=== PATIENT | female | born 1945 | race Caucasian/White ===

== ENCOUNTER 2017-08-16 09:16 | Emergency (ER) | payer OTHER, MEDICARE ==
[~2017-08-16] VITALS: Ht 167.6 cm; Wt 55.7 kg
[~2017-08-16 09:16] MED LIST: ALPR0.254 PO; AMLO5TAB2 PO; ASPI-496 PO; CETI-18 PO; CHOL10003 PO; CITA20TA5 PO; CYCL1DRO EACHEYE; DOXY100C2 PO; FLUO20CA19 PO; FLUT12HF3 IH; HYDR-3237 PO; HYDR25TA6 PO; IPRA4AER INH; PRED10TA PO; TEMA15CA6 PO; TIOT18CA INH; TRAZ50TA18 PO
[2017-08-16] MEDS ORDERED: MIRT15TA4 PO (09:44)
[2017-08-16] MEDS ORDERED: OMEP-110 PO (09:44)
[2017-08-16] MEDS ORDERED: METO50TA82 PO (09:44)
[2017-08-16] MEDS ORDERED: CETI10CA PO (09:44)
[2017-08-16] MEDS ORDERED: VALS160T3 PO (09:44)
[2017-08-16] MEDS ORDERED: LETR2.5T PO (09:44)
[2017-08-16] MEDS ORDERED: ASPI-496 PO (09:44)
[2017-08-16] MEDS ORDERED: MELO15TA24 PO (09:44)
[2017-08-16] MEDS ORDERED: TEMA30CA PO (09:44)
[2017-08-16] MEDS ORDERED: FLUO20TA25 PO (09:44)
[2017-08-16] MEDS ORDERED: OXYcodone/APAP 5/325MG TABLET ONE (09:51)
[2017-08-16] MEDS ORDERED: OXYcodone/APAP 5/325MG TABLET PO ONE (10:00)
[2017-08-16 10:43] VITALS: BP 132/70
== END 2017-08-16 10:56 | disposition home or self-care (01) ==
LOC: ED 10:08
DX: M54.41 Lumbago with sciatica, right side (principal); I10 Essential (primary) hypertension; F10.129 Alcohol abuse with intoxication, unspecified; J44.9 Chronic obstructive pulmonary disease, unspecified
CPT/HCPCS: 99283; J7512

== ENCOUNTER → 2017-08-31 | Outpatient (CLI) | payer OTHER ==
[~2017-08-31] MED LIST changes: +CETI10CA PO; +FLUO20TA25 PO; +LETR2.5T PO; +MELO15TA24 PO; +METO50TA82 PO; +MIRT15TA4 PO; +OMEP-110 PO; +TEMA30CA PO; +VALS160T3 PO
== END | disposition home or self-care (01) ==
LOC: RAD 12:11
PROVIDERS: ATTEND Neurological Surgery
DX: M50.33 Other cervical disc degeneration, cervicothoracic region (principal); M48.02 Spinal stenosis, cervical region; M48.54XA Collapsed vertebra, not elsewhere classified, thoracic region, initial encounter for fracture; M47.896 Other spondylosis, lumbar region; J98.4 Other disorders of lung; Z98.890 Other specified postprocedural states
CPT/HCPCS: 72141; 74176

== ENCOUNTER 2018-01-28 06:17 | Inpatient (IN) | payer OTHER, MEDICARE ==
[~2018-01-28] VITALS: Ht 167.6 cm; Wt 55.0 kg
[2018-01-28] MEDS ORDERED: SODIUM CHLORIDE 0.9% 1,000ML IVBOLUS ONE (07:00)
[2018-01-28] MEDS ORDERED: ALBUTEROL/IPRATROPIUM 2.5MG/0.5MG, 3 ML NPPB ONE (07:00)
[2018-01-28] MEDS ORDERED: ALBUTEROL/IPRATROPIUM 2.5MG/0.5MG, 3 ML ONE (07:00)
[2018-01-28] MEDS ORDERED: methylPREDNISolone SOD SUCC 125 MG/2 ML IVP ONE (07:00)
[2018-01-28] MEDS ORDERED: SODIUM CHLORIDE FLUSH 10ML SYR IVF ONE (07:00)
[2018-01-28] MEDS ORDERED: LORazepam 2 MG/ML, 1ML ONE ×2 (07:14→07:23)
[2018-01-28 07:22] LABS: RAPID INFLUENZA A Negative (Negative); RAPID INFLUENZA B Negative (Negative)
[2018-01-28] MEDS ORDERED: methylPREDNISolone SOD SUCC 125 MG/2 ML ONE (07:23)
[2018-01-28 07:30] LABS: BASOPHILS # (AUTO) 0.01 x10^3/uL (0-0.1); BASOPHILS % (AUTO) 0 % (0-1); EOSINOPHILS # (AUTO) 0.27 x10^3/uL (0-0.4); EOSINOPHILS % (AUTO) 2 % (1-7); LYMPHOCYTES # (AUTO) 0.81 x10^3/uL (1-3.4); LYMPHOCYTES % (AUTO) 6 % (22-44); MD NO; MEAN CORPUSCULAR HEMOGLOBIN 29.3 pg (27.0-34.8); MEAN CORPUSCULAR HGB CONC 33.3 g/dL (32.4-35.8); MONOCYTES # (AUTO) 0.75 x10^3/uL (0.2-0.8); MONOCYTES % (AUTO) 6 % (2-9); NEUTROPHILS # (AUTO) 11.58 x10^3/uL (1.8-6.8); NEUTROPHILS % (AUTO) 86 % (42-75); PLATELET COUNT 553 x10^3/uL (130-400); RED BLOOD COUNT 3.46 x10^6/uL (3.82-5.3); RED CELL DISTRIBUTION WIDTH 14.8 % (9.6-15.2)
[2018-01-28] MEDS ORDERED: LORazepam 2 MG/ML, 1ML IVPush ONE (07:30)
[2018-01-28 07:43] LABS: ALANINE AMINOTRANSFERASE 10 U/L (12-78); ALBUMIN 3.4 g/dL (3.4-5.0); ANION GAP 10 mmol/L (5-15); CALCIUM 8.6 mg/dL (8.5-10.1); CHLORIDE 86 mmol/L (98-107)
[2018-01-28 07:48] LABS: ALKALINE PHOSPHATASE 157 U/L (45-117); BILIRUBIN,TOTAL 0.3 mg/dL (0.2-1.0); CREATININE 0.75 mg/dL (0.55-1.02); INTERNATIONAL NORMALIZED RATIO 1.01 (0.93-1.1); PROTHROMBIN TIME 10.5 Seconds (9.6-11.5); TOTAL PROTEIN 7.9 g/dL (6.4-8.2); TROPONIN I < 0.015 ng/mL (0.000-0.045)
[2018-01-28] MEDS ORDERED: CEFTRIAXONE PMX 1GM/50ML 50 ML ONE (08:22)
[2018-01-28] MEDS ORDERED: AZITHROMYCIN 500 MG in SODIUM CHLORIDE 0.9% 250 ML IV ONE (08:30)
[2018-01-28] MEDS ORDERED: CEFTRIAXONE PMX 1GM/50ML 50 ML IV ONE (08:30)
[2018-01-28] MEDS ORDERED: LETR2.5T PO (08:35)
[2018-01-28] MEDS ORDERED: METO1TAB6 PO (08:35)
[2018-01-28] MEDS ORDERED: FLUT12HF3 IH (08:36)
[2018-01-28] MEDS ORDERED: TIOT18CA INH (08:37)
[2018-01-28] MEDS ORDERED: MIRT15TA4 PO (08:38)
[2018-01-28] MEDS ORDERED: CLON-365 PO (08:39)
[2018-01-28] MEDS ORDERED: OXYB5TAB7 PO (08:40)
[2018-01-28] MEDS ORDERED: OXYC-302 PO (09:41)
[2018-01-28 09:48] VITALS: BP 118/74
[2018-01-28] MEDS: ALBUTEROL/IPRATROPIUM 2.5MG/0.5MG, 3 ML NPPB SCH ×4 (10:00→22:50)
[2018-01-28] MEDS: GUAIFENESIN ER 600 MG TABLET PO SCH ×2 (11:55→21:06)
[2018-01-28] MEDS: HYDROCHLOROTHIAZIDE 25 MG TABLET PO SCH (11:58)
[2018-01-28] MEDS: METOPROLOL TARTRATE 50 MG TABLET PO SCH (11:58)
[2018-01-28] MEDS ORDERED: LORazepam 1MG TABLET PO PRN (12:00)
[2018-01-28] MEDS ORDERED: HYDROcodone/APAP 5/325 TABLET PO PRN (12:00)
[2018-01-28] MEDS: FLUOXETINE HCL 20 MG CAPSULE PO SCH (12:00)
[2018-01-28] MEDS: VALSARTAN 160 MG TABLET PO SCH (12:00)
[2018-01-28] MEDS ORDERED: HYDROCHLOROTHIAZIDE PO SCH (12:00)
[2018-01-28] MEDS ORDERED: POLYETHYLENE GLYCOL 17 GM PACKET PO PRN (12:00)
[2018-01-28] MEDS ORDERED: BISACODYL 10 MG SUPP PR PRN (12:00)
[2018-01-28] MEDS ORDERED: METOPROLOL PO SCH (12:00)
[2018-01-28] MEDS ORDERED: ACETAMINOPHEN 325 MG TABLET PO PRN (12:00)
[2018-01-28] MEDS ORDERED: [UNRECOGNIZED DRUG - OTHER] PO SCH (12:00)
[2018-01-28] MEDS ORDERED: LABETALOL 5MG/ML, 20ML IVPush PRN ×2 (12:00→22:00)
[2018-01-28 12:52] VITALS: BP 125/72
[2018-01-28] MEDS: ENOXAPARIN 40 MG/0.4 ML SQ SCH (13:08)
[2018-01-28] MEDS: OXYcodone/APAP 5/325MG TABLET PO SCH ×3 (13:08→21:06)
[2018-01-28] MEDS: OXYBUTYNIN CHLORIDE 5 MG TABLET PO SCH ×2 (14:27→21:06)
[2018-01-28 19:36] VITALS: BP 108/59
[2018-01-28] MEDS: DOCUSATE 100 MG CAPSULE PO PRN (21:06)
[2018-01-28] MEDS: MIRTAZAPINE 15 MG TABLET PO SCH (21:06)
[2018-01-28] MEDS: LORazepam 1MG TABLET PO PRN (21:07)
[2018-01-29 02:32] VITALS: BP 132/74
[2018-01-29] MEDS: ALBUTEROL/IPRATROPIUM 2.5MG/0.5MG, 3 ML NPPB SCH ×6 (04:45→22:00)
[2018-01-29 04:59] LABS: BASOPHILS # (AUTO) 0.01 x10^3/uL (0-0.1); BASOPHILS % (AUTO) 0 % (0-1); EOSINOPHILS % (AUTO) 0 % (1-7); LYMPHOCYTES # (AUTO) 0.81 x10^3/uL (1-3.4); LYMPHOCYTES % (AUTO) 7 % (22-44); MD NO; MEAN CORPUSCULAR HEMOGLOBIN 29.2 pg (27.0-34.8); MEAN CORPUSCULAR HGB CONC 33.1 g/dL (32.4-35.8); MEAN CORPUSCULAR VOLUME 88.4 fL (80-100); MEAN PLATELET VOLUME 6.9 fL (7.4-10.4); MONOCYTES # (AUTO) 0.59 x10^3/uL (0.2-0.8); MONOCYTES % (AUTO) 5 % (2-9); NEUTROPHILS # (AUTO) 10.62 x10^3/uL (1.8-6.8); NEUTROPHILS % (AUTO) 88 % (42-75); PLATELET COUNT 449 x10^3/uL (130-400); RED BLOOD COUNT 2.88 x10^6/uL (3.82-5.3); RED CELL DISTRIBUTION WIDTH 15.1 % (9.6-15.2)
[2018-01-29 05:04] LABS: ANION GAP 6 mmol/L (5-15); CALCIUM 8.5 mg/dL (8.5-10.1); CHLORIDE 91 mmol/L (98-107); CREATININE 0.75 mg/dL (0.55-1.02)
[2018-01-29] MEDS: OXYcodone/APAP 5/325MG TABLET PO SCH ×4 (06:29→20:09)
[2018-01-29 07:22] VITALS: BP 125/69
[2018-01-29] MEDS: MELOXICAM 15 MG TABLET PO SCH (08:27)
[2018-01-29] MEDS: OXYBUTYNIN CHLORIDE 5 MG TABLET PO SCH ×2 (08:27→20:09)
[2018-01-29] MEDS: OMEPRAZOLE 20 MG CAPSULE.DR PO SCH (08:27)
[2018-01-29] MEDS: GUAIFENESIN ER 600 MG TABLET PO SCH ×2 (08:27→20:09)
[2018-01-29] MEDS: FLUOXETINE HCL 20 MG CAPSULE PO SCH (08:28)
[2018-01-29] MEDS: AZITHROMYCIN 250 MG TABLET PO SCH (08:28)
[2018-01-29] MEDS: VALSARTAN 160 MG TABLET PO SCH (08:28)
[2018-01-29] MEDS: ASPIRIN 81 MG TABLET EC PO SCH (08:28)
[2018-01-29] MEDS: HYDROCHLOROTHIAZIDE 25 MG TABLET PO SCH (08:28)
[2018-01-29] MEDS: METOPROLOL TARTRATE 50 MG TABLET PO SCH (08:28)
[2018-01-29] MEDS: FLUTICASONE/VILANTEROL 100-25MCG/INH INH SCH (08:29)
[2018-01-29] MEDS: prednisOLONE 15 MG/5 ML ORAL SOLN PO SCH (08:29)
[2018-01-29] MEDS: CEFTRIAXONE PMX 1GM/50ML 50 ML IV SCH (08:29)
[2018-01-29] MEDS ORDERED: OXYBUTYNIN CHLORIDE 5 MG TABLET PO SCH (09:00)
[2018-01-29] MEDS: SODIUM CHLORIDE 1 GM TABLET PO SCH ×4 (09:52→20:10)
[2018-01-29 12:12] VITALS: BP 144/90
[2018-01-29] MEDS: ENOXAPARIN 40 MG/0.4 ML SQ SCH (12:34)
[2018-01-29] MEDS: LORazepam 1MG TABLET PO PRN ×2 (12:44→20:09)
[2018-01-29 18:33] VITALS: BP 116/68
[2018-01-29] MEDS: MIRTAZAPINE 15 MG TABLET PO SCH (20:09)
[2018-01-29] MEDS: DOCUSATE 100 MG CAPSULE PO PRN (20:09)
[2018-01-29 20:21] LABS: ANION GAP 6 mmol/L (5-15); CALCIUM 8.2 mg/dL (8.5-10.1); CHLORIDE 92 mmol/L (98-107); CREATININE 1.27 mg/dL (0.55-1.02)
[2018-01-30 01:12] VITALS: BP 119/65
[2018-01-30 05:33] LABS: BASOPHILS # (AUTO) 0.03 x10^3/uL (0-0.1); BASOPHILS % (AUTO) 0 % (0-1); EOSINOPHILS # (AUTO) 0.01 x10^3/uL (0-0.4); EOSINOPHILS % (AUTO) 0 % (1-7); LYMPHOCYTES # (AUTO) 1.11 x10^3/uL (1-3.4); LYMPHOCYTES % (AUTO) 9 % (22-44); MD NO; MEAN CORPUSCULAR HEMOGLOBIN 29.6 pg (27.0-34.8); MEAN CORPUSCULAR HGB CONC 33.4 g/dL (32.4-35.8); MEAN CORPUSCULAR VOLUME 88.7 fL (80-100); MEAN PLATELET VOLUME 7.2 fL (7.4-10.4); MONOCYTES # (AUTO) 0.74 x10^3/uL (0.2-0.8); MONOCYTES % (AUTO) 6 % (2-9); NEUTROPHILS # (AUTO) 9.84 x10^3/uL (1.8-6.8); NEUTROPHILS % (AUTO) 84 % (42-75); PLATELET COUNT 469 x10^3/uL (130-400); RED BLOOD COUNT 2.89 x10^6/uL (3.82-5.3); RED CELL DISTRIBUTION WIDTH 14.6 % (9.6-15.2)
[2018-01-30] MEDS: OXYcodone/APAP 5/325MG TABLET PO SCH ×4 (05:36→20:07)
[2018-01-30] MEDS: SODIUM CHLORIDE 1 GM TABLET PO SCH ×4 (05:36→20:07)
[2018-01-30 05:53] LABS: ANION GAP 6 mmol/L (5-15); CALCIUM 8.5 mg/dL (8.5-10.1); CHLORIDE 94 mmol/L (98-107)
[2018-01-30 05:54] LABS: CREATININE 0.92 mg/dL (0.55-1.02)
[2018-01-30] MEDS: ALBUTEROL/IPRATROPIUM 2.5MG/0.5MG, 3 ML NPPB SCH ×4 (06:00→20:45)
[2018-01-30 06:42] VITALS: BP 137/81
[2018-01-30] MEDS: CEFTRIAXONE PMX 1GM/50ML 50 ML IV SCH (08:27)
[2018-01-30] MEDS: FLUTICASONE/VILANTEROL 100-25MCG/INH INH SCH (08:28)
[2018-01-30] MEDS: AZITHROMYCIN 250 MG TABLET PO SCH (08:28)
[2018-01-30] MEDS: GUAIFENESIN ER 600 MG TABLET PO SCH (08:28)
[2018-01-30] MEDS: prednisOLONE 15 MG/5 ML ORAL SOLN PO SCH (08:28)
[2018-01-30] MEDS: ASPIRIN 81 MG TABLET EC PO SCH (08:28)
[2018-01-30] MEDS: OXYBUTYNIN CHLORIDE 5 MG TABLET PO SCH ×2 (08:29→20:07)
[2018-01-30] MEDS: FLUOXETINE HCL 20 MG CAPSULE PO SCH (08:29)
[2018-01-30] MEDS: VALSARTAN 160 MG TABLET PO SCH (08:29)
[2018-01-30] MEDS: OMEPRAZOLE 20 MG CAPSULE.DR PO SCH (08:29)
[2018-01-30] MEDS: METOPROLOL TARTRATE 50 MG TABLET PO SCH (08:29)
[2018-01-30] MEDS: MELOXICAM 15 MG TABLET PO SCH (08:29)
[2018-01-30] MEDS: HYDROCHLOROTHIAZIDE 25 MG TABLET PO SCH (08:40)
[2018-01-30] MEDS ORDERED: ALBUTEROL SULFATE 2.5 MG/3 ML NPPB PRN (09:30)
[2018-01-30] MEDS: ENOXAPARIN 40 MG/0.4 ML SQ SCH (11:46)
[2018-01-30 13:30] VITALS: BP 126/74
[2018-01-30] MEDS ORDERED: GUAIFENESIN/DM 200-20MG, 10ML UDC PO PRN (17:00)
[2018-01-30 19:13] VITALS: BP 134/68
[2018-01-30 19:21] LABS: ANION GAP 10 mmol/L (5-15); CALCIUM 8.4 mg/dL (8.5-10.1); CHLORIDE 96 mmol/L (98-107); CREATININE 1.04 mg/dL (0.55-1.02)
[2018-01-30] MEDS: LORazepam 1MG TABLET PO PRN (20:07)
[2018-01-30] MEDS: MIRTAZAPINE 15 MG TABLET PO SCH (20:07)
[2018-01-31 02:15] VITALS: BP 128/70
[2018-01-31 04:44] VITALS: BP 128/62
[2018-01-31] MEDS: SODIUM CHLORIDE 1 GM TABLET PO SCH ×2 (05:46→11:47)
[2018-01-31] MEDS: OXYcodone/APAP 5/325MG TABLET PO SCH ×2 (05:46→11:47)
[2018-01-31 07:42] VITALS: BP 154/84
[2018-01-31] MEDS: ALBUTEROL/IPRATROPIUM 2.5MG/0.5MG, 3 ML NPPB SCH ×2 (08:40→10:40)
[2018-01-31] MEDS: HYDROCHLOROTHIAZIDE 25 MG TABLET PO SCH (09:00)
[2018-01-31] MEDS: ASPIRIN 81 MG TABLET EC PO SCH (09:06)
[2018-01-31] MEDS: VALSARTAN 160 MG TABLET PO SCH (09:06)
[2018-01-31] MEDS: OXYBUTYNIN CHLORIDE 5 MG TABLET PO SCH (09:06)
[2018-01-31] MEDS: METOPROLOL TARTRATE 50 MG TABLET PO SCH (09:06)
[2018-01-31] MEDS: FLUOXETINE HCL 20 MG CAPSULE PO SCH (09:07)
[2018-01-31] MEDS: OMEPRAZOLE 20 MG CAPSULE.DR PO SCH (09:07)
[2018-01-31] MEDS: AZITHROMYCIN 250 MG TABLET PO SCH (09:07)
[2018-01-31] MEDS: MELOXICAM 15 MG TABLET PO SCH (09:07)
[2018-01-31] MEDS: FLUTICASONE/VILANTEROL 100-25MCG/INH INH SCH (09:08)
[2018-01-31] MEDS: CEFTRIAXONE PMX 1GM/50ML 50 ML IV SCH (09:08)
[2018-01-31] MEDS: prednisOLONE 15 MG/5 ML ORAL SOLN PO SCH (09:09)
[2018-01-31] MEDS: ENOXAPARIN 40 MG/0.4 ML SQ SCH (11:49)
[2018-01-31 12:40] VITALS: BP 155/75
[2018-01-31] MEDS ORDERED: FLUT1AER INH (14:11)
[2018-01-31] MEDS ORDERED: GUAI5SYR PO (14:11)
[2018-01-31] MEDS ORDERED: ALBU18HF PO (14:11)
[2018-01-31] MEDS ORDERED: PRED10TA PO (14:11)
[2018-01-31] MEDS ORDERED: GUAI100L11 PO (14:11)
[2018-01-31] MEDS ORDERED: AMOX500T PO (14:11)
== END 2018-01-31 16:06 | disposition home or self-care (01) | DRG 871 ==
LOC: ED 08:06 → EDIP 08:09 → 4WST 09:38 → DCLOUNGE 01-31 15:40
PROVIDERS: ADMIT Internal Medicine; ATTEND Internal Medicine
DX: A41.9 Sepsis, unspecified organism (principal); J18.1 Lobar pneumonia, unspecified organism; J96.01 Acute respiratory failure with hypoxia; J44.1 Chronic obstructive pulmonary disease with (acute) exacerbation; E87.1 Hypo-osmolality and hyponatremia; F19.20 Other psychoactive substance dependence, uncomplicated; J44.0 Chronic obstructive pulmonary disease with (acute) lower respiratory infection; G47.00 Insomnia, unspecified; K40.90 Unilateral inguinal hernia, without obstruction or gangrene, not specified as recurrent; F17.200 Nicotine dependence, unspecified, uncomplicated; F41.9 Anxiety disorder, unspecified; G89.29 Other chronic pain; I10 Essential (primary) hypertension; K21.9 Gastro-esophageal reflux disease without esophagitis; Z85.3 Personal history of malignant neoplasm of breast; Z90.710 Acquired absence of both cervix and uterus; Z99.81 Dependence on supplemental oxygen
CPT/HCPCS: 36415; 71045; 80048; 80053; 83605; 83880; 84145; 84484; 85025; 85610; 85730; 87040; 87400; 93005; 94640; 96361; 96365; 96368; 96375; J0456; J0696; J1650; J7620; J2930; J7030; J7050; J7510

== ENCOUNTER 2018-09-14 02:27 | Inpatient (IN) | payer OTHER, MEDICARE ==
[~2018-09-14] VITALS: Ht 167.6 cm; Wt 67.7 kg
[~2018-09-14 02:27] MED LIST changes: +ALBU18HF PO; -AMLO5TAB2 PO; +AMLO5TAB7 PO; +AMOX500T PO; -CITA20TA5 PO; +CITA20TA6 PO; +CLON1TAB11 PO; +FLUT1AER INH; +GUAI100L11 PO; +GUAI5SYR PO; +METO1TAB6 PO; +OXYB5TAB7 PO; +OXYC-302 PO; +TRAZ-136 PO; -TRAZ50TA18 PO
[2018-09-14] MEDS ORDERED: SODIUM CHLORIDE FLUSH 10ML SYR IVF ONE (03:00)
[2018-09-14] MEDS ORDERED: IPRATROPIUM 0.5 MG/2.5 ML INHA NPPB SCH (03:00)
[2018-09-14 04:26] LABS: BASOPHILS # (AUTO) 0.04 x10^3/uL (0-0.1); BASOPHILS % (AUTO) 0 % (0-1); EOSINOPHILS # (AUTO) 0.57 x10^3/uL (0-0.4); EOSINOPHILS % (AUTO) 6 % (1-7); LYMPHOCYTES # (AUTO) 1.85 x10^3/uL (1-3.4); LYMPHOCYTES % (AUTO) 18 % (22-44); MD NO; MEAN CORPUSCULAR HEMOGLOBIN 31.8 pg (27.0-34.8); MEAN CORPUSCULAR HGB CONC 33.4 g/dL (32.4-35.8); MEAN CORPUSCULAR VOLUME 95.3 fL (80-100); MEAN PLATELET VOLUME 7.5 fL (7.4-10.4); MONOCYTES # (AUTO) 0.95 x10^3/uL (0.2-0.8); MONOCYTES % (AUTO) 9 % (2-9); NEUTROPHILS # (AUTO) 6.71 x10^3/uL (1.8-6.8); NEUTROPHILS % (AUTO) 66 % (42-75); PLATELET COUNT 331 x10^3/uL (130-400); RED BLOOD COUNT 3.23 x10^6/uL (3.82-5.3); RED CELL DISTRIBUTION WIDTH 15.4 % (9.6-15.2)
[2018-09-14 04:39] LABS: ALANINE AMINOTRANSFERASE 23 U/L (12-78); ALBUMIN 3.7 g/dL (3.4-5.0); ANION GAP 8 mmol/L (5-15); CALCIUM 9.3 mg/dL (8.5-10.1); CHLORIDE 101 mmol/L (98-107); CREATININE 1.13 mg/dL (0.55-1.02)
[2018-09-14 04:43] LABS: ALKALINE PHOSPHATASE 132 U/L (45-117); BILIRUBIN,TOTAL 0.3 mg/dL (0.2-1.0); TROPONIN I < 0.015 ng/mL (0.000-0.045)
[2018-09-14] MEDS ORDERED: ALBUTEROL/IPRATROPIUM 2.5MG/0.5MG, 3 ML ONE (05:24)
[2018-09-14] MEDS ORDERED: IPRATROPIUM 0.5 MG/2.5 ML INHA ONE (05:27)
[2018-09-14] MEDS: GUAIFENESIN 100 MG/5 ML, 5ML UDC PO SCH ×4 (06:00→21:00)
[2018-09-14] MEDS: ALBUTEROL SULFATE 2.5 MG/3 ML HHN SCH ×2 (06:00→11:00)
[2018-09-14 06:20] VITALS: BP 139/81
[2018-09-14] MEDS ORDERED: GUAIFENESIN 100 MG/5 ML, 10ML UDC ONE ×3 (06:26→21:08)
[2018-09-14] MEDS ORDERED: DOCUSATE 100 MG CAPSULE PO PRN (06:30)
[2018-09-14] MEDS: IPRATROPIUM 0.5 MG/2.5 ML INHA NPPB SCH ×4 (06:30→20:07)
[2018-09-14] MEDS ORDERED: ONDANSETRON 2MG/ML, 2ML IVPush PRN (06:30)
[2018-09-14] MEDS ORDERED: ONDANSETRON ODT 4 MG PO PRN (06:30)
[2018-09-14] MEDS ORDERED: ACETAMINOPHEN 325 MG TABLET PO PRN (06:30)
[2018-09-14] MEDS: OXYcodone/APAP 5/325MG TABLET PO SCH ×4 (06:36→21:00)
[2018-09-14] MEDS: ENOXAPARIN 40 MG/0.4 ML SQ SCH (06:37)
[2018-09-14] MEDS: CEFTRIAXONE PMX 1GM/50ML 50 ML IV SCH ×2 (06:37→09:44)
[2018-09-14] MEDS ORDERED: ALBUTEROL/IPRATROPIUM 2.5MG/0.5MG, 3 ML NEB SCH (07:00)
[2018-09-14] MEDS ORDERED: FLUTICASONE/VILANTEROL 100-25MCG/INH INH SCH (09:00)
[2018-09-14] MEDS: HYDROCHLOROTHIAZIDE 25 MG TABLET PO SCH (09:00)
[2018-09-14] MEDS ORDERED: TEMPLATE NON-FORMULARY MED. (Tiotropium Bromide** (Spiriva**) 18 MCG) INH SCH (09:00)
[2018-09-14] MEDS: LETROZOLE 2.5 MG TABLET PO SCH (09:00)
[2018-09-14] MEDS: OXYBUTYNIN CHLORIDE 5 MG TABLET PO SCH (09:00)
[2018-09-14] MEDS: FLUTICASONE/VILANTEROL 200-25MCG/INH INH SCH (09:44)
[2018-09-14] MEDS: CETIRIZINE 10 MG TABLET PO SCH (09:45)
[2018-09-14] MEDS: VALSARTAN 160 MG TABLET PO SCH (09:45)
[2018-09-14] MEDS: DOXYCYCLINE 100MG TABLET PO SCH ×2 (09:45→21:13)
[2018-09-14] MEDS: METOPROLOL TARTRATE 50 MG TABLET PO SCH (09:45)
[2018-09-14] MEDS: FLUOXETINE HCL 20 MG CAPSULE PO SCH (09:46)
[2018-09-14] MEDS: MELOXICAM 15 MG TABLET PO SCH (09:46)
[2018-09-14] MEDS: ASPIRIN 81 MG TABLET CHEW PO SCH (09:46)
[2018-09-14] MEDS ORDERED: FLUT1BLS3 INH (09:58)
[2018-09-14] MEDS ORDERED: METO-93 PO (09:58)
[2018-09-14 10:45] LABS: TROPONIN I < 0.015 ng/mL (0.000-0.045)
[2018-09-14 12:25] VITALS: BP 113/59
[2018-09-14 18:57] VITALS: BP 102/53
[2018-09-14] MEDS ORDERED: MIRTAZAPINE 15 MG TABLET PO SCH (21:00)
[2018-09-15 01:15] VITALS: BP 107/62
[2018-09-15] MEDS: OXYcodone/APAP 5/325MG TABLET PO SCH ×2 (05:28→11:32)
[2018-09-15] MEDS: GUAIFENESIN 100 MG/5 ML, 10ML UDC PO SCH ×2 (05:28→11:32)
[2018-09-15] MEDS: ENOXAPARIN 40 MG/0.4 ML SQ SCH (05:29)
[2018-09-15 06:00] LABS: BASOPHILS # (AUTO) 0.03 x10^3/uL (0-0.1); BASOPHILS % (AUTO) 0 % (0-1); EOSINOPHILS # (AUTO) 0.31 x10^3/uL (0-0.4); EOSINOPHILS % (AUTO) 5 % (1-7); LYMPHOCYTES # (AUTO) 1.24 x10^3/uL (1-3.4); LYMPHOCYTES % (AUTO) 18 % (22-44); MD NO; MEAN CORPUSCULAR HGB CONC 33.5 g/dL (32.4-35.8); MEAN CORPUSCULAR VOLUME 95.5 fL (80-100); MEAN PLATELET VOLUME 7.7 fL (7.4-10.4); MONOCYTES # (AUTO) 0.76 x10^3/uL (0.2-0.8); MONOCYTES % (AUTO) 11 % (2-9); NEUTROPHILS # (AUTO) 4.58 x10^3/uL (1.8-6.8); NEUTROPHILS % (AUTO) 66 % (42-75); PLATELET COUNT 288 x10^3/uL (130-400); RED BLOOD COUNT 2.92 x10^6/uL (3.82-5.3); RED CELL DISTRIBUTION WIDTH 15.2 % (9.6-15.2)
[2018-09-15 06:10] LABS: CHLORIDE 104 mmol/L (98-107)
[2018-09-15 06:21] LABS: ANION GAP 7 mmol/L (5-15); CREATININE 0.99 mg/dL (0.55-1.02)
[2018-09-15] MEDS: IPRATROPIUM 0.5 MG/2.5 ML INHA NPPB SCH (06:30)
[2018-09-15 06:43] VITALS: BP 109/62
[2018-09-15] MEDS: LETROZOLE 2.5 MG TABLET PO SCH (07:21)
[2018-09-15] MEDS: OXYBUTYNIN CHLORIDE 5 MG TABLET PO SCH (07:21)
[2018-09-15] MEDS: HYDROCHLOROTHIAZIDE 25 MG TABLET PO SCH (07:21)
[2018-09-15] MEDS: CEFTRIAXONE PMX 1GM/50ML 50 ML IV SCH (08:24)
[2018-09-15] MEDS: DOXYCYCLINE 100MG TABLET PO SCH (08:25)
[2018-09-15] MEDS: FLUTICASONE/VILANTEROL 200-25MCG/INH INH SCH (08:25)
[2018-09-15] MEDS: CETIRIZINE 10 MG TABLET PO SCH (08:25)
[2018-09-15] MEDS: FLUOXETINE HCL 20 MG CAPSULE PO SCH (08:25)
[2018-09-15] MEDS: METOPROLOL TARTRATE 50 MG TABLET PO SCH (08:25)
[2018-09-15] MEDS: VALSARTAN 160 MG TABLET PO SCH (08:26)
[2018-09-15] MEDS: MELOXICAM 15 MG TABLET PO SCH (08:26)
[2018-09-15] MEDS: ASPIRIN 81 MG TABLET CHEW PO SCH (08:26)
[2018-09-15] MEDS ORDERED: DOXY100T PO (12:20)
[2018-09-15] MEDS ORDERED: GUAI100L11 PO (12:20)
[2018-09-15 12:42] VITALS: BP 100/65
[2018-09-23] MEDS ORDERED: METO50TA82 PO (07:21)
== END 2018-09-15 13:45 | disposition home or self-care (01) | DRG 193 ==
LOC: ED 03:35 → EDIP 04:59 → 4WST 06:08 → DCLOUNGE 09-15 13:26
PROVIDERS: ADMIT Family Medicine; ATTEND Family Medicine
DX: J18.9 Pneumonia, unspecified organism (principal); J96.91 Respiratory failure, unspecified with hypoxia; F19.20 Other psychoactive substance dependence, uncomplicated; J44.0 Chronic obstructive pulmonary disease with (acute) lower respiratory infection; J44.1 Chronic obstructive pulmonary disease with (acute) exacerbation; D64.9 Anemia, unspecified; M54.9 Dorsalgia, unspecified; I10 Essential (primary) hypertension; Z79.52 Long term (current) use of systemic steroids; Z85.3 Personal history of malignant neoplasm of breast; Z87.891 Personal history of nicotine dependence; Z99.81 Dependence on supplemental oxygen; Z91.5 Personal history of self-harm; Z88.8 Allergy status to other drugs, medicaments and biological substances; Z82.61 Family history of arthritis; Z79.82 Long term (current) use of aspirin
CPT/HCPCS: 36415; 84145; 99285; J7644; 71045; 80048; 80053; 83880; 84484; 85025; 93005; 94640; G0378; J0696; J1650; J7512

== ENCOUNTER → 2018-10-30 | Outpatient (CLI) | payer OTHER, MEDICARE ==
[~2018-10-30] MED LIST changes: +AMLO-150 PO; -AMLO5TAB7 PO; +DOXY100T PO; +FLUT1BLS3 INH; +FURO20TA3 PO; +METO-93 PO; +PRED20TA PO; -TRAZ-136 PO; +TRAZ50TA66 PO; +VALS160T27 PO
== END | disposition home or self-care (01) ==
LOC: CFH 10:52
PROVIDERS: ATTEND Nurse Practitioner
DX: R05 Cough (principal)
CPT/HCPCS: 71046

== ENCOUNTER 2019-01-17 06:08 | Inpatient (IN) | payer MEDICARE, OTHER ==
[~2019-01-17] VITALS: Ht 167.6 cm; Wt 60.1 kg
[2019-01-17] MEDS ORDERED: ALBUTEROL/IPRATROPIUM 2.5MG/0.5MG, 3 ML NPPB ONE (06:30)
[2019-01-17] MEDS ORDERED: ALBUTEROL/IPRATROPIUM 2.5MG/0.5MG, 3 ML ONE (06:36)
--- NOTE | 2019-01-17 06:43 | NUR ---
PT MEDICATED PER MAR, RT AT PT'S BEDSIDE FOR T/X
[2019-01-17] MEDS ORDERED: PRED10TA14 PO (06:51)
[2019-01-17] MEDS ORDERED: VALS160T3 PO (06:51)
--- NOTE | 2019-01-17 06:57 | NUR ---
report given to violette carney
[2019-01-17 07:08] LABS: MEAN CORPUSCULAR HEMOGLOBIN 28.4 pg (27.0-34.8); MEAN CORPUSCULAR VOLUME 88.6 fL (80-100); MEAN PLATELET VOLUME 7.9 fL (7.4-10.4); PLATELET COUNT 481 x10^3/uL (130-400); RED BLOOD COUNT 3.25 x10^6/uL (3.82-5.3); RED CELL DISTRIBUTION WIDTH 16.3 % (9.6-15.2)
--- NOTE | 2019-01-17 07:09 | NUR ---
BEDSIDE REPORT WITH DEVONTE CEJA, PT RESTING IN [facility], PROVIDED BLANKET. UPDATED PT AND FAMILY ON POC. NO NEEDS AT THIS TIME
[2019-01-17 07:14] LABS: ALBUMIN 3.4 g/dL (3.4-5.0); ANION GAP 7 mmol/L (5-15); CALCIUM 8.9 mg/dL (8.5-10.1); CHLORIDE 102 mmol/L (98-107); CREATININE 0.93 mg/dL (0.55-1.02)
[2019-01-17 07:18] LABS: TROPONIN I < 0.015 ng/mL (0.000-0.045)
[2019-01-17] MEDS ORDERED: SODIUM CHLORIDE 0.9% 1,000ML IVBOLUS ONE (07:30)
[2019-01-17] MEDS ORDERED: SODIUM CHLORIDE FLUSH 10ML SYR IVF ONE (07:30)
[2019-01-17 08:01] LABS: MD YES
[2019-01-17 08:03] LABS: BAND#(MANUAL) 1.12 x10^3/uL; BANDS%(MANUAL) 7 % (0-7); LYMPH#(MANUAL) 1.92 x10^3/uL (1-3.4); LYMPHS% (MANUAL) 12 % (22-44); MONOS#(MANUAL) 1.12 x10^3/uL (0.3-2.7); MONOS% (MANUAL) 7 % (2-9); REACTIVE LYMPHS # (MANUAL) 0.16 x10^3/uL (0-0); REACTIVE LYMPHS % (MANUAL) 1 % (0-0); SEG#(MANUAL) 11.68 x10^3/uL (1.8-6.8); SEGS% (MANUAL) 73 % (42-75)
[2019-01-17 08:04] LABS: <PLATELET ESTIMATE> INCREASED; <PLT MORPHOLOGY> NORMAL PLT MORPH; ANISOCYTOSIS 1+; OVALOCYTES 1+
[2019-01-17] MEDS ORDERED: OXYcodone/APAP 5/325MG TABLET PO ONE (08:30)
[2019-01-17] MEDS ORDERED: LORazepam 2 MG/ML, 1ML ONE (08:39)
--- NOTE | 2019-01-17 08:51 | NUR ---
AT BEDSIDE TO PLACE US IV
[2019-01-17] MEDS ORDERED: LORazepam 2 MG/ML, 1ML IVPush STA (08:54)
[2019-01-17 10:04] VITALS: BP 145/85
[2019-01-17] MEDS ORDERED: TEMA30CA PO (10:44)
[2019-01-17] MEDS ORDERED: ONDANSETRON 2MG/ML, 2ML IVPush PRN (11:00)
[2019-01-17] MEDS ORDERED: ALBUTEROL/IPRATROPIUM 2.5MG/0.5MG, 3 ML HHN SCH (11:00)
[2019-01-17] MEDS ORDERED: ACETAMINOPHEN 325 MG TABLET PO PRN (11:00)
[2019-01-17] MEDS ORDERED: OXYcodone/APAP 5/325MG TABLET PO PRN (11:30)
[2019-01-17] MEDS: methylPREDNISolone SOD SUCC 125 MG/2 ML IVPush SCH ×2 (11:52→16:19)
[2019-01-17] MEDS: ENOXAPARIN 40 MG/0.4 ML SQ SCH (11:52)
[2019-01-17] MEDS: GUAIFENESIN 200 MG TABLET PO SCH ×3 (11:52→20:26)
[2019-01-17] MEDS: CEFTRIAXONE PMX 1GM/50ML 50 ML IV SCH (12:17)
[2019-01-17 13:04] VITALS: BP 133/75
[2019-01-17] MEDS: AZITHROMYCIN 500 MG in SODIUM CHLORIDE 0.9% 250 ML IV SCH (13:57)
[2019-01-17] MEDS ORDERED: ALBUTEROL/IPRATROPIUM 2.5MG/0.5MG, 3 ML HHN PRN (15:30)
[2019-01-17] MEDS: OXYcodone/APAP 5/325MG TABLET PO PRN (16:19)
[2019-01-17] MEDS ORDERED: POTASSIUM CHLORIDE 20 MEQ TAB.ER.PRT PO SCH (17:00)
[2019-01-17 19:15] VITALS: BP 125/82
[2019-01-17] MEDS ORDERED: TEMAZEPAM 15 MG CAPSULE ONE (20:22)
[2019-01-17] MEDS: TEMAZEPAM 30 MG CAPSULE PO PRN (20:27)
[2019-01-17] MEDS: BUDESONIDE 0.5 MG/2 ML INHA INH SCH (20:30)
[2019-01-17] MEDS ORDERED: TEMAZEPAM 30 MG CAPSULE PO SCH (21:00)
[2019-01-18] VITALS (7 sets, daily range): BP systolic 139–184; BP diastolic 77–101
[2019-01-18] MEDS: methylPREDNISolone SOD SUCC 125 MG/2 ML IVPush SCH ×3 (00:21→11:30)
[2019-01-18] MEDS: ACETAMINOPHEN 325 MG TABLET PO PRN (04:26)
[2019-01-18 04:45] LABS: RAPID INFLUENZA A Negative (Negative); RAPID INFLUENZA B Negative (Negative)
[2019-01-18 05:00] LABS: MEAN CORPUSCULAR HGB CONC 32.9 g/dL (32.4-35.8); MEAN CORPUSCULAR VOLUME 88.1 fL (80-100); MEAN PLATELET VOLUME 7.4 fL (7.4-10.4); PLATELET COUNT 417 x10^3/uL (130-400); RED BLOOD COUNT 2.82 x10^6/uL (3.82-5.3); RED CELL DISTRIBUTION WIDTH 16.2 % (9.6-15.2)
[2019-01-18 05:10] LABS: ALANINE AMINOTRANSFERASE 16 U/L (12-78); ALBUMIN 2.8 g/dL (3.4-5.0); ANION GAP 4 mmol/L (5-15); CALCIUM 8.3 mg/dL (8.5-10.1); CHLORIDE 106 mmol/L (98-107); CREATININE 0.82 mg/dL (0.55-1.02)
[2019-01-18 05:12] LABS: ALKALINE PHOSPHATASE 74 U/L (45-117); BILIRUBIN,TOTAL 0.2 mg/dL (0.2-1.0); TOTAL PROTEIN 6.6 g/dL (6.4-8.2)
[2019-01-18] MEDS: GUAIFENESIN 200 MG TABLET PO SCH ×4 (05:29→21:17)
[2019-01-18 05:55] LABS: BASOPHILS % (AUTO) 0 % (0-1); EOSINOPHILS % (AUTO) 0 % (1-7); LYMPHOCYTES # (AUTO) 0.51 x10^3/uL (1-3.4); LYMPHOCYTES % (AUTO) 4 % (22-44); MD SCAN; MONOCYTES # (AUTO) 0.06 x10^3/uL (0.2-0.8); MONOCYTES % (AUTO) 1 % (2-9); NEUTROPHILS % (AUTO) 96 % (42-75)
[2019-01-18] MEDS: BUDESONIDE 0.5 MG/2 ML INHA INH SCH ×2 (07:15→20:50)
[2019-01-18] MEDS: FLUOXETINE HCL 20 MG CAPSULE PO SCH (08:22)
[2019-01-18] MEDS: ASPIRIN 81 MG TABLET EC PO SCH (08:22)
[2019-01-18] MEDS: VALSARTAN 160 MG TABLET PO SCH (08:22)
[2019-01-18] MEDS: OMEPRAZOLE 20 MG CAPSULE.DR PO SCH (08:22)
[2019-01-18] MEDS: POTASSIUM CHLORIDE 20 MEQ TAB.ER.PRT PO SCH (08:23)
[2019-01-18] MEDS: FUROSEMIDE 20 MG TABLET PO SCH (08:23)
[2019-01-18] MEDS: CETIRIZINE 10 MG TABLET PO SCH (08:23)
[2019-01-18] MEDS: LABETALOL 5MG/ML, 20ML IVPush PRN (10:49)
[2019-01-18] MEDS: CEFTRIAXONE PMX 1GM/50ML 50 ML IV SCH (11:30)
[2019-01-18] MEDS: ENOXAPARIN 40 MG/0.4 ML SQ SCH (11:33)
[2019-01-18] MEDS: AZITHROMYCIN 500 MG in SODIUM CHLORIDE 0.9% 250 ML IV SCH (12:38)
[2019-01-18] MEDS: OXYcodone/APAP 5/325MG TABLET PO PRN ×2 (12:48→17:06)
[2019-01-18] MEDS: ALBUTEROL/IPRATROPIUM 2.5MG/0.5MG, 3 ML HHN SCH ×3 (15:20→20:30)
[2019-01-18] MEDS: FERROUS SULFATE 325 MG TABLET PO SCH (17:06)
[2019-01-18] MEDS ORDERED: ALBUTEROL/IPRATROPIUM 2.5MG/0.5MG, 3 ML NPPB PRN (17:30)
[2019-01-18] MEDS: TEMAZEPAM 30 MG CAPSULE PO PRN (21:16)
[2019-01-19 01:56] VITALS: BP 145/72
[2019-01-19] MEDS: ALBUTEROL/IPRATROPIUM 2.5MG/0.5MG, 3 ML HHN SCH ×7 (03:00→23:21)
[2019-01-19] MEDS: ACETAMINOPHEN 325 MG TABLET PO PRN (03:35)
[2019-01-19] MEDS: FUROSEMIDE 20 MG TABLET PO SCH (04:24)
[2019-01-19] MEDS: GUAIFENESIN 200 MG TABLET PO SCH ×4 (05:01→20:17)
[2019-01-19 07:05] LABS: ANION GAP 9 mmol/L (5-15); CALCIUM 8.5 mg/dL (8.5-10.1); CHLORIDE 107 mmol/L (98-107)
[2019-01-19 07:08] LABS: CREATININE 0.86 mg/dL (0.55-1.02)
[2019-01-19 07:27] VITALS: BP 143/76
[2019-01-19 08:43] LABS: MEAN CORPUSCULAR HEMOGLOBIN 27.9 pg (27.0-34.8); MEAN CORPUSCULAR HGB CONC 31.7 g/dL (32.4-35.8); MEAN PLATELET VOLUME 7.7 fL (7.4-10.4); PLATELET COUNT 440 x10^3/uL (130-400); RED BLOOD COUNT 3.12 x10^6/uL (3.82-5.3)
[2019-01-19] MEDS: AZITHROMYCIN 250 MG TABLET PO SCH (08:43)
[2019-01-19] MEDS: FLUOXETINE HCL 20 MG CAPSULE PO SCH (08:43)
[2019-01-19] MEDS: FERROUS SULFATE 325 MG TABLET PO SCH ×3 (08:43→17:00)
[2019-01-19] MEDS: VALSARTAN 160 MG TABLET PO SCH (08:43)
[2019-01-19] MEDS: hydrOXyzine 50MG TABLET PO PRN (08:44)
[2019-01-19] MEDS: POTASSIUM CHLORIDE 20 MEQ TAB.ER.PRT PO SCH (08:44)
[2019-01-19] MEDS: ASPIRIN 81 MG TABLET EC PO SCH (08:44)
[2019-01-19] MEDS: OMEPRAZOLE 20 MG CAPSULE.DR PO SCH (08:44)
[2019-01-19] MEDS: CETIRIZINE 10 MG TABLET PO SCH (08:44)
[2019-01-19] MEDS: OXYcodone/APAP 5/325MG TABLET PO PRN (08:44)
[2019-01-19] MEDS: BUDESONIDE 0.5 MG/2 ML INHA INH SCH ×2 (09:00→19:12)
[2019-01-19 09:08] LABS: TROPONIN I < 0.015 ng/mL (0.000-0.045)
[2019-01-19 09:27] LABS: BASOPHILS # (AUTO) 0.03 x10^3/uL (0-0.1); BASOPHILS % (AUTO) 0 % (0-1); EOSINOPHILS % (AUTO) 0 % (1-7); LYMPHOCYTES # (AUTO) 0.59 x10^3/uL (1-3.4); LYMPHOCYTES % (AUTO) 3 % (22-44); MD SCAN; MONOCYTES # (AUTO) 0.66 x10^3/uL (0.2-0.8); MONOCYTES % (AUTO) 3 % (2-9); NEUTROPHILS # (AUTO) 17.95 x10^3/uL (1.8-6.8); NEUTROPHILS % (AUTO) 93 % (42-75)
[2019-01-19] MEDS: LORazepam 2 MG/ML, 1ML IVPush PRN ×2 (10:10→22:19)
[2019-01-19] MEDS: ENOXAPARIN 40 MG/0.4 ML SQ SCH (10:10)
[2019-01-19] MEDS: methylPREDNISolone SOD SUCC 125 MG/2 ML IVPush SCH ×2 (11:20→20:17)
[2019-01-19] MEDS ORDERED: methylPREDNISolone SOD SUCC 125 MG/2 ML IVPush SCH (11:30)
[2019-01-19] MEDS ORDERED: FUROSEMIDE 20 MG/2 ML IV ONE (11:30)
[2019-01-19] MEDS ORDERED: LORazepam 2 MG/ML, 1ML IVPush PRN (11:30)
[2019-01-19] MEDS: PIPERACILLIN/TAZO/PMX 4.5GM 100 ML IV SCH ×2 (13:33→20:17)
[2019-01-19] MEDS: LINEZOLID PMX 600MG/300ML 300 ML IV SCH (15:14)
[2019-01-19] MEDS ORDERED: BUDESONIDE 0.5 MG/2 ML INHA INH SCH (21:00)
[2019-01-19] MEDS ORDERED: TEMAZEPAM 15 MG CAPSULE ONE (22:13)
[2019-01-19] MEDS: TEMAZEPAM 30 MG CAPSULE PO PRN (22:19)
[2019-01-20] MEDS: PIPERACILLIN/TAZO/PMX 4.5GM 100 ML IV SCH ×4 (01:04→19:57)
[2019-01-20] MEDS: ALBUTEROL/IPRATROPIUM 2.5MG/0.5MG, 3 ML HHN SCH ×6 (02:45→22:16)
[2019-01-20] MEDS: methylPREDNISolone SOD SUCC 125 MG/2 ML IVPush SCH ×4 (03:01→19:57)
[2019-01-20] MEDS: LINEZOLID PMX 600MG/300ML 300 ML IV SCH ×2 (03:58→15:38)
[2019-01-20 04:38] LABS: MEAN CORPUSCULAR HEMOGLOBIN 28.9 pg (27.0-34.8); MEAN CORPUSCULAR HGB CONC 33.1 g/dL (32.4-35.8); MEAN CORPUSCULAR VOLUME 87.5 fL (80-100); MEAN PLATELET VOLUME 7.4 fL (7.4-10.4); PLATELET COUNT 354 x10^3/uL (130-400); RED BLOOD COUNT 2.65 x10^6/uL (3.82-5.3); RED CELL DISTRIBUTION WIDTH 15.9 % (9.6-15.2)
[2019-01-20 04:52] LABS: ALBUMIN 2.6 g/dL (3.4-5.0); ANION GAP 6 mmol/L (5-15); CALCIUM 7.9 mg/dL (8.5-10.1); CHLORIDE 100 mmol/L (98-107)
[2019-01-20 04:55] LABS: ALANINE AMINOTRANSFERASE 20 U/L (12-78); ALKALINE PHOSPHATASE 62 U/L (45-117); BILIRUBIN,TOTAL 0.2 mg/dL (0.2-1.0); CREATININE 0.82 mg/dL (0.55-1.02); TOTAL PROTEIN 6.1 g/dL (6.4-8.2)
[2019-01-20 05:35] LABS: MD YES
[2019-01-20 05:36] LABS: ANISOCYTOSIS 1+; BAND#(MANUAL) 0.14 x10^3/uL; BANDS%(MANUAL) 1 % (0-7); LYMPH#(MANUAL) 0.28 x10^3/uL (1-3.4); LYMPHS% (MANUAL) 2 % (22-44); MONOS#(MANUAL) 0.14 x10^3/uL (0.3-2.7); MONOS% (MANUAL) 1 % (2-9); MYELOCYTES# (MANUAL) 0.14 x10^3/uL (0-0); MYELOCYTES% (MANUAL) 1 % (0-0); OVALOCYTES 1+; SEGS% (MANUAL) 95 % (42-75)
[2019-01-20 05:37] LABS: <PLATELET ESTIMATE> ADEQUATE; <PLT MORPHOLOGY> NORMAL PLT MORPH
[2019-01-20] MEDS: GUAIFENESIN 200 MG TABLET PO SCH ×4 (06:23→22:38)
[2019-01-20] MEDS: BUDESONIDE 0.5 MG/2 ML INHA INH SCH ×2 (06:55→18:53)
[2019-01-20] MEDS: LORazepam 2 MG/ML, 1ML IVPush PRN ×3 (07:37→18:29)
[2019-01-20] MEDS: OMEPRAZOLE 20 MG CAPSULE.DR PO SCH (08:34)
[2019-01-20] MEDS: OXYcodone/APAP 5/325MG TABLET PO PRN (08:35)
[2019-01-20] MEDS: CETIRIZINE 10 MG TABLET PO SCH (08:35)
[2019-01-20] MEDS: VALSARTAN 160 MG TABLET PO SCH (08:35)
[2019-01-20] MEDS: FERROUS SULFATE 325 MG TABLET PO SCH ×3 (08:35→17:55)
[2019-01-20] MEDS: FUROSEMIDE 20 MG TABLET PO SCH (08:35)
[2019-01-20] MEDS: ASPIRIN 81 MG TABLET EC PO SCH (08:35)
[2019-01-20] MEDS: FLUOXETINE HCL 20 MG CAPSULE PO SCH (08:35)
[2019-01-20] MEDS: AZITHROMYCIN 250 MG TABLET PO SCH (08:35)
[2019-01-20] MEDS: POTASSIUM CHLORIDE 20 MEQ TAB.ER.PRT PO SCH (08:36)
[2019-01-20] MEDS: hydrOXyzine 50MG TABLET PO PRN (12:39)
[2019-01-20 13:22] LABS: MEAN CORPUSCULAR HGB CONC 32.1 g/dL (32.4-35.8); MEAN CORPUSCULAR VOLUME 87.3 fL (80-100); MEAN PLATELET VOLUME 7.5 fL (7.4-10.4); PLATELET COUNT 371 x10^3/uL (130-400); RED BLOOD COUNT 2.98 x10^6/uL (3.82-5.3); RED CELL DISTRIBUTION WIDTH 15.7 % (9.6-15.2)
[2019-01-20 13:59] LABS: MD YES
[2019-01-20] MEDS ORDERED: FUROSEMIDE 20 MG/2 ML IV ONE (14:00)
[2019-01-20 14:01] LABS: BAND#(MANUAL) 0.53 x10^3/uL; BANDS%(MANUAL) 3 % (0-7); LYMPH#(MANUAL) 0.89 x10^3/uL (1-3.4); LYMPHS% (MANUAL) 5 % (22-44); METAMYELOCYTES# (MANUAL) 0.18 x10^3/uL (0-0); METAMYELOCYTES% (MANUAL) 1 % (0-1); SEGS% (MANUAL) 91 % (42-75)
[2019-01-20 14:04] LABS: <PLATELET ESTIMATE> ADEQUATE; <PLT MORPHOLOGY> NORMAL PLT MORPH; OVALOCYTES 1+
[2019-01-20] MEDS: hydrOXyzine 50MG TABLET PO SCH ×2 (15:38→22:38)
[2019-01-20] MEDS ORDERED: POTASSIUM CHLORIDE 20 MEQ TAB.ER.PRT PO SCH (17:00)
[2019-01-20] MEDS ORDERED: POLYETHYLENE GLYCOL 17 GM PACKET PO PRN (19:30)
[2019-01-20] MEDS: TEMAZEPAM 30 MG CAPSULE PO PRN (23:06)
[2019-01-21] MEDS: PIPERACILLIN/TAZO/PMX 4.5GM 100 ML IV SCH ×4 (01:27→19:52)
[2019-01-21] MEDS: ALBUTEROL/IPRATROPIUM 2.5MG/0.5MG, 3 ML HHN SCH ×3 (02:33→21:00)
[2019-01-21] MEDS: LINEZOLID PMX 600MG/300ML 300 ML IV SCH ×2 (02:45→15:02)
[2019-01-21] MEDS: methylPREDNISolone SOD SUCC 125 MG/2 ML IVPush SCH ×4 (02:45→19:52)
[2019-01-21] MEDS: hydrOXyzine 50MG TABLET PO SCH ×4 (05:20→20:30)
[2019-01-21] MEDS: GUAIFENESIN 200 MG TABLET PO SCH ×4 (05:20→20:30)
[2019-01-21] MEDS: BUDESONIDE 0.5 MG/2 ML INHA INH SCH ×2 (06:35→21:00)
[2019-01-21 07:42] LABS: ANION GAP 9 mmol/L (5-15); CALCIUM 8.3 mg/dL (8.5-10.1); CHLORIDE 97 mmol/L (98-107); CREATININE 1.12 mg/dL (0.55-1.02)
[2019-01-21 08:50] LABS: MEAN CORPUSCULAR HEMOGLOBIN 28.4 pg (27.0-34.8); MEAN CORPUSCULAR HGB CONC 32.4 g/dL (32.4-35.8); MEAN CORPUSCULAR VOLUME 87.7 fL (80-100); MEAN PLATELET VOLUME 7.2 fL (7.4-10.4); PLATELET COUNT 441 x10^3/uL (130-400); RED BLOOD COUNT 3.09 x10^6/uL (3.82-5.3); RED CELL DISTRIBUTION WIDTH 15.4 % (9.6-15.2)
[2019-01-21 09:08] LABS: MD YES
[2019-01-21 09:11] LABS: <PLATELET ESTIMATE> INCREASED; <PLT MORPHOLOGY> NORMAL PLT MORPH; BAND#(MANUAL) 0.26 x10^3/uL; BANDS%(MANUAL) 2 % (0-7); LYMPH#(MANUAL) 0.77 x10^3/uL (1-3.4); LYMPHS% (MANUAL) 6 % (22-44); MONOS#(MANUAL) 0.26 x10^3/uL (0.3-2.7); MONOS% (MANUAL) 2 % (2-9); MYELOCYTES# (MANUAL) 0.13 x10^3/uL (0-0); MYELOCYTES% (MANUAL) 1 % (0-0); SEG#(MANUAL) 11.48 x10^3/uL (1.8-6.8); SEGS% (MANUAL) 89 % (42-75)
[2019-01-21 09:12] LABS: OVALOCYTES 1+
[2019-01-21] MEDS: FERROUS SULFATE 325 MG TABLET PO SCH ×3 (09:32→17:21)
[2019-01-21] MEDS: POTASSIUM CHLORIDE 20 MEQ TAB.ER.PRT PO SCH ×2 (09:32→17:21)
[2019-01-21] MEDS: CETIRIZINE 10 MG TABLET PO SCH (09:32)
[2019-01-21] MEDS: FLUOXETINE HCL 20 MG CAPSULE PO SCH (09:32)
[2019-01-21] MEDS: AZITHROMYCIN 250 MG TABLET PO SCH (09:33)
[2019-01-21] MEDS: OMEPRAZOLE 20 MG CAPSULE.DR PO SCH (09:33)
[2019-01-21] MEDS: FUROSEMIDE 20 MG TABLET PO SCH (09:33)
[2019-01-21] MEDS: VALSARTAN 160 MG TABLET PO SCH (09:33)
[2019-01-21] MEDS: ASPIRIN 81 MG TABLET EC PO SCH (09:36)
[2019-01-21] MEDS: OXYcodone/APAP 5/325MG TABLET PO PRN (09:58)
[2019-01-21] MEDS: FUROSEMIDE 20 MG/2 ML IV SCH (17:19)
[2019-01-21] MEDS: TEMAZEPAM 30 MG CAPSULE PO PRN (20:30)
[2019-01-21 21:42] VITALS: BP 161/91
[2019-01-22 01:15] VITALS: BP 164/73
[2019-01-22] MEDS: methylPREDNISolone SOD SUCC 125 MG/2 ML IVPush SCH ×4 (02:02→19:54)
[2019-01-22] MEDS: PIPERACILLIN/TAZO/PMX 4.5GM 100 ML IV SCH ×4 (02:02→19:54)
[2019-01-22 05:01] LABS: BASOPHILS % (AUTO) 0 % (0-1); EOSINOPHILS % (AUTO) 0 % (1-7); LYMPHOCYTES # (AUTO) 0.65 x10^3/uL (1-3.4); LYMPHOCYTES % (AUTO) 6 % (22-44); MD NO; MEAN CORPUSCULAR HEMOGLOBIN 29.1 pg (27.0-34.8); MEAN CORPUSCULAR HGB CONC 33.1 g/dL (32.4-35.8); MEAN PLATELET VOLUME 7.5 fL (7.4-10.4); MONOCYTES # (AUTO) 0.34 x10^3/uL (0.2-0.8); MONOCYTES % (AUTO) 3 % (2-9); NEUTROPHILS # (AUTO) 9.38 x10^3/uL (1.8-6.8); NEUTROPHILS % (AUTO) 90 % (42-75); PLATELET COUNT 398 x10^3/uL (130-400); RED BLOOD COUNT 2.95 x10^6/uL (3.82-5.3); RED CELL DISTRIBUTION WIDTH 15.5 % (9.6-15.2)
[2019-01-22 05:13] LABS: CHLORIDE 101 mmol/L (98-107)
[2019-01-22 05:20] LABS: ANION GAP 5 mmol/L (5-15); CALCIUM 8.2 mg/dL (8.5-10.1); CREATININE 1.03 mg/dL (0.55-1.02)
[2019-01-22] MEDS: GUAIFENESIN 200 MG TABLET PO SCH ×4 (05:41→20:21)
[2019-01-22] MEDS: hydrOXyzine 50MG TABLET PO SCH ×4 (05:41→20:21)
[2019-01-22] MEDS: OXYcodone/APAP 5/325MG TABLET PO PRN ×2 (05:41→15:37)
[2019-01-22] MEDS ORDERED: ALBUTEROL SULFATE 2.5 MG/3 ML ONE (06:44)
[2019-01-22] MEDS: ALBUTEROL/IPRATROPIUM 2.5MG/0.5MG, 3 ML HHN SCH ×2 (07:24→20:12)
[2019-01-22] MEDS: BUDESONIDE 0.5 MG/2 ML INHA INH SCH ×2 (07:24→20:11)
[2019-01-22 07:30] VITALS: BP 165/80
[2019-01-22] MEDS: CETIRIZINE 10 MG TABLET PO SCH (08:53)
[2019-01-22] MEDS: POTASSIUM CHLORIDE 20 MEQ TAB.ER.PRT PO SCH ×2 (08:53→18:02)
[2019-01-22] MEDS: OMEPRAZOLE 20 MG CAPSULE.DR PO SCH (08:53)
[2019-01-22] MEDS: VALSARTAN 160 MG TABLET PO SCH (08:54)
[2019-01-22] MEDS: FERROUS SULFATE 325 MG TABLET PO SCH ×3 (08:54→18:02)
[2019-01-22] MEDS: ASPIRIN 81 MG TABLET EC PO SCH (08:54)
[2019-01-22] MEDS: AZITHROMYCIN 250 MG TABLET PO SCH (08:54)
[2019-01-22] MEDS: FLUOXETINE HCL 20 MG CAPSULE PO SCH (08:54)
[2019-01-22] MEDS: FUROSEMIDE 20 MG/2 ML IV SCH ×2 (08:55→18:02)
[2019-01-22 13:33] VITALS: BP 145/76
[2019-01-22 19:55] VITALS: BP 166/81
[2019-01-22] MEDS ORDERED: OMEPRAZOLE 20 MG CAPSULE.DR PO ONE (20:30)
[2019-01-22] MEDS ORDERED: CALCIUM CARBONATE 500 MG TAB.CHEW PO PRN (20:30)
[2019-01-22] MEDS: TEMAZEPAM 30 MG CAPSULE PO PRN (20:34)
[2019-01-23] VITALS (7 sets, daily range): BP systolic 146–199; BP diastolic 80–94
[2019-01-23] MEDS: methylPREDNISolone SOD SUCC 125 MG/2 ML IVPush SCH (01:23)
[2019-01-23] MEDS: PIPERACILLIN/TAZO/PMX 4.5GM 100 ML IV SCH (01:24)
[2019-01-23] MEDS: LORazepam 2 MG/ML, 1ML IVPush PRN (03:25)
[2019-01-23 05:12] LABS: BASOPHILS % (AUTO) 0 % (0-1); EOSINOPHILS % (AUTO) 0 % (1-7); LYMPHOCYTES # (AUTO) 0.62 x10^3/uL (1-3.4); LYMPHOCYTES % (AUTO) 6 % (22-44); MD NO; MEAN CORPUSCULAR HEMOGLOBIN 28.8 pg (27.0-34.8); MEAN CORPUSCULAR HGB CONC 32.9 g/dL (32.4-35.8); MEAN CORPUSCULAR VOLUME 87.6 fL (80-100); MEAN PLATELET VOLUME 7.5 fL (7.4-10.4); MONOCYTES # (AUTO) 0.28 x10^3/uL (0.2-0.8); MONOCYTES % (AUTO) 3 % (2-9); NEUTROPHILS # (AUTO) 8.74 x10^3/uL (1.8-6.8); NEUTROPHILS % (AUTO) 91 % (42-75); PLATELET COUNT 388 x10^3/uL (130-400); RED BLOOD COUNT 2.86 x10^6/uL (3.82-5.3); RED CELL DISTRIBUTION WIDTH 15.6 % (9.6-15.2)
[2019-01-23 05:23] LABS: ANION GAP 7 mmol/L (5-15); CALCIUM 8.1 mg/dL (8.5-10.1); CHLORIDE 99 mmol/L (98-107); CREATININE 1.05 mg/dL (0.55-1.02)
[2019-01-23] MEDS: hydrOXyzine 50MG TABLET PO SCH ×4 (05:27→20:47)
[2019-01-23] MEDS: GUAIFENESIN 200 MG TABLET PO SCH ×4 (05:27→20:46)
[2019-01-23] MEDS: ALBUTEROL/IPRATROPIUM 2.5MG/0.5MG, 3 ML HHN SCH ×2 (07:18→21:20)
[2019-01-23] MEDS: BUDESONIDE 0.5 MG/2 ML INHA INH SCH ×2 (07:18→21:20)
[2019-01-23] MEDS: ASPIRIN 81 MG TABLET EC PO SCH (07:58)
[2019-01-23] MEDS: FERROUS SULFATE 325 MG TABLET PO SCH ×3 (07:59→16:45)
[2019-01-23] MEDS: FLUOXETINE HCL 20 MG CAPSULE PO SCH (07:59)
[2019-01-23] MEDS: LEVOFLOXACIN 750 MG TABLET PO SCH (08:00)
[2019-01-23] MEDS: OMEPRAZOLE 20 MG CAPSULE.DR PO SCH (08:01)
[2019-01-23] MEDS: VALSARTAN 160 MG TABLET PO SCH (08:01)
[2019-01-23] MEDS: POTASSIUM CHLORIDE 20 MEQ TAB.ER.PRT PO SCH ×2 (08:01→16:44)
[2019-01-23] MEDS: CETIRIZINE 10 MG TABLET PO SCH (08:03)
[2019-01-23] MEDS: OXYcodone/APAP 5/325MG TABLET PO PRN ×2 (10:38→16:44)
[2019-01-23] MEDS: FUROSEMIDE 20 MG/2 ML IV SCH (10:40)
[2019-01-23] MEDS: TEMAZEPAM 30 MG CAPSULE PO PRN (20:47)
[2019-01-23] MEDS: LABETALOL 5MG/ML, 20ML IVPush PRN (21:17)
[2019-01-24 01:19] VITALS: BP 157/70
[2019-01-24] MEDS: GUAIFENESIN 200 MG TABLET PO SCH ×4 (05:07→20:13)
[2019-01-24] MEDS: hydrOXyzine 50MG TABLET PO SCH ×4 (05:07→20:13)
[2019-01-24 05:11] LABS: BASOPHILS # (AUTO) 0.02 x10^3/uL (0-0.1); BASOPHILS % (AUTO) 0 % (0-1); EOSINOPHILS # (AUTO) 0.17 x10^3/uL (0-0.4); EOSINOPHILS % (AUTO) 2 % (1-7); LYMPHOCYTES # (AUTO) 1.53 x10^3/uL (1-3.4); LYMPHOCYTES % (AUTO) 14 % (22-44); MD NO; MEAN CORPUSCULAR HEMOGLOBIN 28.7 pg (27.0-34.8); MEAN CORPUSCULAR HGB CONC 32.6 g/dL (32.4-35.8); MEAN CORPUSCULAR VOLUME 88.2 fL (80-100); MEAN PLATELET VOLUME 7.3 fL (7.4-10.4); MONOCYTES # (AUTO) 0.72 x10^3/uL (0.2-0.8); MONOCYTES % (AUTO) 7 % (2-9); NEUTROPHILS # (AUTO) 8.26 x10^3/uL (1.8-6.8); NEUTROPHILS % (AUTO) 77 % (42-75); PLATELET COUNT 389 x10^3/uL (130-400); RED BLOOD COUNT 2.86 x10^6/uL (3.82-5.3); RED CELL DISTRIBUTION WIDTH 15.5 % (9.6-15.2)
[2019-01-24 05:19] LABS: ANION GAP 4 mmol/L (5-15); CALCIUM 8.4 mg/dL (8.5-10.1); CHLORIDE 105 mmol/L (98-107); CREATININE 0.74 mg/dL (0.55-1.02)
[2019-01-24] MEDS: BUDESONIDE 0.5 MG/2 ML INHA INH SCH ×2 (07:00→20:20)
[2019-01-24] MEDS: ALBUTEROL/IPRATROPIUM 2.5MG/0.5MG, 3 ML HHN SCH ×2 (07:00→20:20)
[2019-01-24 07:40] VITALS: BP 166/81
[2019-01-24] MEDS: FUROSEMIDE 20 MG/2 ML IV SCH (09:59)
[2019-01-24] MEDS: ASPIRIN 81 MG TABLET EC PO SCH (10:00)
[2019-01-24] MEDS: POTASSIUM CHLORIDE 20 MEQ TAB.ER.PRT PO SCH ×2 (10:00→16:30)
[2019-01-24] MEDS: OMEPRAZOLE 20 MG CAPSULE.DR PO SCH (10:01)
[2019-01-24] MEDS: FLUOXETINE HCL 20 MG CAPSULE PO SCH (10:01)
[2019-01-24] MEDS: FERROUS SULFATE 325 MG TABLET PO SCH ×3 (10:01→16:29)
[2019-01-24] MEDS ORDERED: LEVO750T26 PO (10:57)
[2019-01-24] MEDS ORDERED: FLUO20CA8 PO (10:57)
[2019-01-24] MEDS ORDERED: HYDR50TA13 PO (10:57)
[2019-01-24] MEDS ORDERED: FURO20TA3 PO (10:57)
[2019-01-24] MEDS ORDERED: PRED20TA PO (10:57)
[2019-01-24] MEDS: VALSARTAN 160 MG TABLET PO SCH (12:02)
[2019-01-24] MEDS: LEVOFLOXACIN 750 MG TABLET PO SCH (12:02)
[2019-01-24] MEDS: OXYcodone/APAP 5/325MG TABLET PO PRN (13:13)
[2019-01-24 14:00] VITALS: BP 140/82
[2019-01-24] MEDS: CETIRIZINE 10 MG TABLET PO SCH (16:32)
[2019-01-24 19:20] VITALS: BP 158/89
[2019-01-24] MEDS: TEMAZEPAM 30 MG CAPSULE PO PRN (20:57)
[2019-01-25 02:07] VITALS: BP 147/70
[2019-01-25] MEDS: hydrOXyzine 50MG TABLET PO SCH ×2 (05:14→11:45)
[2019-01-25] MEDS: GUAIFENESIN 200 MG TABLET PO SCH ×2 (05:14→11:45)
[2019-01-25 07:30] VITALS: BP 153/76
[2019-01-25] MEDS: LORazepam 2 MG/ML, 1ML IVPush PRN (09:11)
[2019-01-25] MEDS: POTASSIUM CHLORIDE 20 MEQ TAB.ER.PRT PO SCH (09:16)
[2019-01-25] MEDS: OMEPRAZOLE 20 MG CAPSULE.DR PO SCH (09:16)
[2019-01-25] MEDS: LEVOFLOXACIN 750 MG TABLET PO SCH (09:16)
[2019-01-25] MEDS: FUROSEMIDE 20 MG/2 ML IV SCH (09:16)
[2019-01-25] MEDS: ASPIRIN 81 MG TABLET EC PO SCH (09:17)
[2019-01-25] MEDS: FERROUS SULFATE 325 MG TABLET PO SCH (09:17)
[2019-01-25] MEDS: VALSARTAN 160 MG TABLET PO SCH (09:17)
[2019-01-25] MEDS: FLUOXETINE HCL 20 MG CAPSULE PO SCH (09:17)
[2019-01-25] MEDS: CETIRIZINE 10 MG TABLET PO SCH (09:18)
[2019-01-25] MEDS: ALBUTEROL/IPRATROPIUM 2.5MG/0.5MG, 3 ML HHN SCH (10:33)
[2019-01-25] MEDS: BUDESONIDE 0.5 MG/2 ML INHA INH SCH (10:33)
== END 2019-01-25 12:54 | disposition home health service (06) | DRG 177 ==
LOC: ED 08:09 → 4EST 08:10 → ED 08:58 → CCU 01-19 12:04 → ICU 01-19 20:54 → 5SO 01-21 20:40
PROVIDERS: ADMIT Hospitalist; ATTEND Hospitalist
DX: J15.1 Pneumonia due to Pseudomonas (principal); J96.21 Acute and chronic respiratory failure with hypoxia; J96.22 Acute and chronic respiratory failure with hypercapnia; J44.1 Chronic obstructive pulmonary disease with (acute) exacerbation; I50.30 Unspecified diastolic (congestive) heart failure; J44.0 Chronic obstructive pulmonary disease with (acute) lower respiratory infection; N17.9 Acute kidney failure, unspecified; I27.20 Pulmonary hypertension, unspecified; D64.9 Anemia, unspecified; E86.0 Dehydration; E87.6 Hypokalemia; F41.9 Anxiety disorder, unspecified; I11.0 Hypertensive heart disease with heart failure; I48.91 Unspecified atrial fibrillation; Z79.52 Long term (current) use of systemic steroids; Z87.01 Personal history of pneumonia (recurrent); Z87.891 Personal history of nicotine dependence; Z90.710 Acquired absence of both cervix and uterus; Z90.49 Acquired absence of other specified parts of digestive tract; Z93.3 Colostomy status; Z99.81 Dependence on supplemental oxygen; Z88.8 Allergy status to other drugs, medicaments and biological substances
CPT/HCPCS: 36415; 36600; 71045; 80048; 80053; 82040; 82803; 82805; 83735; 83880; 84145; 84484; 85025; 87040; 87070; 87077; 87081; 87107; 87186; 87205; 87400; 93005; 93306; 94640; 99285; G0378; J0456; J0696; J1650; J2020; J2543; J7620; J7626; J1940; J2060; J2930; J7030; J7050; J7512; Q0177

== ENCOUNTER 2019-09-29 10:36 | Outpatient (CLI) | payer MEDICARE, OTHER ==
[~2019-09-29 10:36] MED LIST changes: +FLUO20CA8 PO; +HYDR50TA13 PO; +LEVO750T26 PO; +MIRT-34 PO; -MIRT15TA4 PO; +OXYB5TAB10 PO; -OXYB5TAB7 PO; +PRED10TA14 PO
== END 2019-09-29 23:59 | disposition home or self-care (01) ==
LOC: WOUND 10:36
PROVIDERS: ATTEND Nurse Practitioner Family
DX: Z93.3 Colostomy status (principal); Z87.891 Personal history of nicotine dependence
CPT/HCPCS: G0463